=== PATIENT | female | born 1955 | race Caucasian/White ===

== ENCOUNTER 2022-08-25 17:17 | Emergency (ER) | payer MEDICARE ==
[2022-08-25] MEDS ORDERED: Amoxicillin/Clavulanate K 875-125 MG Tab PO ONE (18:12)
[2022-08-25] MEDS ORDERED: Ibuprofen 800 MG Tab PO ONE (18:12)
[2022-08-25] MEDS ORDERED: cloNIDine 0.1 MG Tab PO ONE (18:12)
[2022-08-25 18:37] LABS: CORONAVIRUS COVID-19 NAA NEGATIVE (NEGATIVE)
== END 2022-08-25 19:45 | disposition home or self-care (01) ==
LOC: JP.ED 17:17
DX: I10 Essential (primary) hypertension (principal); H66.92 Otitis media, unspecified, left ear; B34.9 Viral infection, unspecified; Z88.1 Allergy status to other antibiotic agents; Z79.899 Other long term (current) drug therapy; Z90.49 Acquired absence of other specified parts of digestive tract; Z20.822 Contact with and (suspected) exposure to COVID-19
CPT/HCPCS: 0241U; 36415; 84484; 93005; 99283; A9270

== ENCOUNTER 2022-11-10 06:19 | Day surgery (SDC) | payer MEDICARE, OTHER ==
[2022-11-10] MEDS ORDERED: Lactated Ringers 1,000 ML IV SCH (07:30)
[2022-11-10] MEDS ORDERED: Propofol 200 MG/20 ML SDV ONE ×2 (07:31→08:42)
[2022-11-10] MEDS ORDERED: Midazolam 1 MG/ML 2 ML SDV ONE (07:31)
[2022-11-10] MEDS ORDERED: fentaNYL 100 MCG/2 ML SDV ONE (07:31)
== END 2022-11-10 10:20 | disposition home or self-care (01) ==
LOC: JP.SDS 06:19
PROVIDERS: ATTEND Student in an Organized Health Care Education/Training Program
DX: K62.5 Hemorrhage of anus and rectum (principal); I10 Essential (primary) hypertension; Z79.899 Other long term (current) drug therapy; Z88.6 Allergy status to analgesic agent
CPT/HCPCS: 45378; J2250; J2704; J3010; J7120